=== PATIENT | female | born 1955 | race Caucasian/White ===

== ENCOUNTER → 2018-01-27 | Day surgery (SDC) | payer MEDICARE, BC ==
[~2018-01-27] MED LIST: BUPIVACAINE/EPI 0.5% 10 ML SOL INFIL ONE; CLINDAMYCIN 150 MG/ML SOL ONE; DEXAMETHASONE 20 MG/5 ML (4 MG/ML SOL) ONE; FENTANYL 100MCG/2ML SOL ONE; KETOROLAC TROMETHAMINE 30 MG/ML SOL IV ONE; KETOROLAC TROMETHAMINE 30 MG/ML SOL ONE; MIDAZOLAM 2 MG/2 ML SOL ONE; ONDANSETRON HCL 4 MG/2 ML SOL IV ONE; ONDANSETRON HCL 4 MG/2 ML SOL ONE; PROPOFOL 10 MG/ML 200 MG/20 ML EMU IV ONE
[2018-01-27 14:25] VITALS: BP 132/66; PULSE 78; RESP 16; TEMP 97.7; O2SAT 99
== END | disposition home or self-care (01) | DRG 446 ==
LOC: SURG 09:21
PROVIDERS: ATTEND Surgery
DX: K80.10 Calculus of gallbladder with chronic cholecystitis without obstruction (principal)
CPT/HCPCS: 99070; J1100; J1885; J2250; J2405; J3010; J3490; J2704